=== PATIENT | female | born 1980 | race Two or more races ===

== ENCOUNTER 2018-02-26 13:29 | Outpatient (CLI) | payer OTHER | END 2018-02-26 13:39 | disposition home or self-care (01) | LOC: RAD 501 13:29 | DX: M54.5 Low back pain (principal); M54.2 Cervicalgia ==

== ENCOUNTER → 2019-01-19 | Outpatient (CLI) | payer OTHER | END | disposition home or self-care (01) | LOC: MAMO-SONO 10:59 | DX: N63.21 Unspecified lump in the left breast, upper outer quadrant (principal); Z12.31 Encounter for screening mammogram for malignant neoplasm of breast; N64.4 Mastodynia; N60.11 Diffuse cystic mastopathy of right breast ==

== ENCOUNTER 2020-04-27 10:13 | Outpatient (CLI) | payer OTHER | END 2020-04-27 10:22 | disposition home or self-care (01) | LOC: MAMO-SONO 10:13 | PROVIDERS: ATTEND Obstetrics & Gynecology Maternal & Fetal Medicine | DX: Z12.31 Encounter for screening mammogram for malignant neoplasm of breast (principal); N64.59 Other signs and symptoms in breast; N60.11 Diffuse cystic mastopathy of right breast; E04.1 Nontoxic single thyroid nodule ==

== ENCOUNTER 2023-12-26 11:04 | Outpatient (CLI) | payer OTHER | END 2023-12-26 11:19 | disposition home or self-care (01) | LOC: RAD 11:04 | PROVIDERS: ATTEND Physical Medicine & Rehabilitation | DX: M54.2 Cervicalgia (principal); M54.50 Low back pain, unspecified; M54.6 Pain in thoracic spine ==